=== PATIENT | female | born 1955 | race Caucasian/White ===

== ENCOUNTER 2020-01-24 00:33 | Inpatient (IN) | payer MEDICARE ==
[~2020-01-24] VITALS: Ht 160 cm; Wt 59.0 kg
--- NOTE | 2020-01-24 00:42 | NUR ---
CALLED FOR COVID SWAB
[2020-01-24] MEDS ORDERED: ATOR20TA PO (00:53)
[2020-01-24] MEDS ORDERED: SERT25TA PO (00:53)
[2020-01-24] MEDS ORDERED: METF-442 PO (00:53)
--- NOTE | 2020-01-24 01:27 | NUR ---
REPORT GIVEN TO MARTINEZ ROMERO FOR SCOTTIE
[2020-01-24 02:38] VITALS: BP 122/73
[2020-01-24] MEDS ORDERED: HYDR-500 PO (02:48)
[2020-01-24] MEDS ORDERED: ACETAMINOPHEN 325 MG TABLET PO PRN (03:00)
[2020-01-24] MEDS ORDERED: BLOOD SUGAR DIAGNOSTIC 1 EACH STRIP IN ONE (03:00)
[2020-01-24] MEDS ORDERED: MAG HYDROX/AL HYDROX/SIMETH 30 ML UDC PO PRN (03:00)
[2020-01-24] MEDS ORDERED: LORAZEPAM 0.5 MG TABLET PO PRN (03:00)
--- NOTE | 2020-01-24 03:17 | NUR ---
GPS/SECURITY STRATEGIST ADMISSION NOTES: RECEIVED 64 YR. OLD FEMALE ON A 5150 HOLD FOR DTS. PT. TRIED TO OVERDOSE ON HER MEDICATION METHFORMIN. PT. A/O X3. PT. ORIENTED TO UNIT POLICY, PROTOCOLS, AND PROCEDURES. SAFETY ENVIRONMENT OBSERVED AT ALL TIMES WITH CALL FUENTES WITHIN REACH AND BED ALARM ON. PT. DENIES SI/HI AT THIS TIME. MEDICAL AND PSYCH DRMaurisio MADE AWARE OF PT. ADMISSION. PT. FAMILY ALSO NOTIFIED OF PT. ADMISSION TO UNIT. WILL CONTINUE TO MONITOR Q 15 MIN FOR SAFETY AND BEHAVIOR.
[2020-01-24 08:00] VITALS: BP 124/69
--- NOTE | 2020-01-24 11:55 | NUR ---
Family Contact: SW called the pts daughter, Karol ([phone]), and left a voicemail stating that the SW would like to discuss the treatment planning and initial discharge plan.
[2020-01-24] MEDS: SERTRALINE HCL 50 MG TABLET PO SCH (12:49)
--- NOTE | 2020-01-24 13:02 | NUR ---
Initial Discharge Plan: Pt currently resides at her home located at [address] [place] [address]; ([phone]). Per pt, she would like to return to her home. DARRELL will work with the MD and the pt regarding appropriate discharge planning. SW will form a safe and proper discharge plan.
--- NOTE | 2020-01-24 15:25 | NUR ---
GROUP NOTE: workers compensation attorney invited pt to participate in group. Pt stated that she is feeling dizzy and does not want to join.
[2020-01-24 16:00] VITALS: BP 124/63
--- NOTE | 2020-01-24 18:17 | NUR ---
gps rn note: NEW T.O. ORDER FROM DR DE LA GARZA MILD ACCU CHECK AC/HS ORDER PLACED AND CARED OUT WILL CONTINUE MONITORING
[2020-01-24] MEDS ORDERED: DEXTROSE 50%-WATER 50 ML DISP.SYRIN IV PRN (18:30)
[2020-01-24 19:54] VITALS: BP 132/72
[2020-01-24 20:00] VITALS: BP 132/72
[2020-01-24] MEDS: MIRTAZAPINE 15 MG TABLET PO SCH (21:18)
[2020-01-24] MEDS: TEMAZEPAM 7.5 MG CAPSULE PO PRN (21:18)
[2020-01-24] MEDS: ATORVASTATIN 10 MG TABLET PO SCH (21:18)
[2020-01-24] MEDS: BLOOD SUGAR DIAGNOSTIC 1 EACH STRIP IN SCH (21:19)
[2020-01-24] MEDS: INSULIN REGULAR, HUMAN 100 UNIT/ML 3 ML VIAL SQ PRN (22:40)
--- NOTE | 2020-01-24 22:40 | NUR ---
GPS RN PT REFUSED INSULIN SLIDING SCALE COVERAGE BLOOD SUGAR AT 156 MG/DL DESPITE EXPLAINING RISKS AND BENEFITS PER PT "I DONT WANT INSULIN".OFFERED 3 TIMES PT STILL REFUSE
[2020-01-25 07:13] LABS: BASOPHILS % (AUTO) 0.4 % (0.0-2.0); EOSINOPHILS % (AUTO) 0.8 % (0.0-6.0); HEMATOCRIT 35 % (33-45); HEMOGLOBIN 11.7 g/dL (11.5-14.8); LYMPHOCYTES # (AUTO) 2.3 /CMM (0.8-4.8); MEAN CORPUSCULAR HGB CONC 33 g/dl (31.0-36.0); MEAN CORPUSCULAR VOLUME 92 fL (82-100); MONOCYTES # (AUTO) 0.5 /CMM (0.1-1.30); NEUTROPHILS # (AUTO) 6.3 /CMM (1.8-8.9); NEUTROPHILS % (AUTO) 68.8 % (43.0-81.0); PLATELET COUNT (AUTO) 285 /CMM (150-450); RED BLOOD CELL COUNT(AUTO) 3.85 MIL/uL (4.0-5.2); WHITE BLOOD COUNT (AUTO) 9.2 K/uL (4.3-11.0)
[2020-01-25 07:30] LABS: CALCIUM, SERUM 9.1 mg/dL (8.5-10.1); CREATININE 0.7 mg/dL (0.6-1.3); POTASSIUM 3.8 mmol/L (3.5-5.1)
[2020-01-25] MEDS: BLOOD SUGAR DIAGNOSTIC 1 EACH STRIP IN SCH ×4 (07:30→21:38)
[2020-01-25 08:00] VITALS: BP 120/67
[2020-01-25] MEDS: INSULIN REGULAR, HUMAN 100 UNIT/ML 3 ML VIAL SQ PRN ×4 (11:42→17:16)
[2020-01-25] MEDS: MAGNESIUM HYDROXIDE 30 ML UDC PO PRN (12:22)
[2020-01-25] MEDS: SERTRALINE HCL 50 MG TABLET PO SCH (12:56)
[2020-01-25 16:00] VITALS: BP 110/61
[2020-01-25 20:00] VITALS: BP 125/58
[2020-01-25 20:26] VITALS: BP 125/58
[2020-01-25] MEDS: MIRTAZAPINE 15 MG TABLET PO SCH (21:38)
[2020-01-25] MEDS: ATORVASTATIN 10 MG TABLET PO SCH (21:39)
--- NOTE | 2020-01-25 21:40 | NUR ---
GPS RN NOTE: REFUSED LIPITOR PATIENT REFUSED TO TAKE LIPITOR SCHEDULED, SAID," I DO NOT WANT TO TAKE IT, MY CHOLESTEROL LEVEL IS GOOD." PT. KEPT REFUSING TO TAKE LIPITOR DESPITE OF RISKS & BENEFITS EXPLANATIONS.
--- NOTE | 2020-01-25 22:12 | NUR ---
GPS RN NOTE: REFUSED INSULIN COVERAGE PATIENT'S BLOOD SUGAR IS 131 MG/DL, PATIENT REFUSED 2 UNITS OF SLIDING SCALE INSULIN ORDERED DESPITE OF RISKS & BENEFITS EXPLANATIONS. PATIENT STATED," IT'S NOT TOO HIGH, IT'S NOT TOO LOW, I WILL SEE IN THE MORNING HOW MUCH IS MY FASTING BLOOD SUGAR LEVEL, THEN I WILL DECIDE." WILL CONTINUE TO MONITOR THE PATIENT FOR ANY CHANGES.
[2020-01-25] MEDS: TEMAZEPAM 7.5 MG CAPSULE PO PRN (22:46)
--- NOTE | 2020-01-25 22:46 | NUR ---
GPS RN NOTE: INSOMNIA PATIENT STATED THAT SHE IS UNABLE TO SLEEP & REQUESTED TO GET SLEEPING MEDICINE. PRN RESTORIL 7.5 MG 1 CAP PO GIVEN ORDERED.
[2020-01-26] MEDS: BLOOD SUGAR DIAGNOSTIC 1 EACH STRIP IN SCH ×4 (07:41→22:02)
[2020-01-26] MEDS: INSULIN REGULAR, HUMAN 100 UNIT/ML 3 ML VIAL SQ PRN ×3 (07:42→17:04)
--- NOTE | 2020-01-26 07:42 | NUR ---
RN NOTE: INSULIN REFUSAL AM ACCUCHECK 138. PT REFUSED 2 UNITS SLIDING SCALE COVERAGE. RISKS AND BENEFITS EXPLAINED. PT CONT TO REFUSE X3. WILL MONITOR FOR S/SX OF HYPERGLYCEMIA
[2020-01-26 08:00] VITALS: BP 134/74
[2020-01-26] MEDS: SERTRALINE HCL 50 MG TABLET PO SCH (13:00)
[2020-01-26 16:00] VITALS: BP 106/65
--- NOTE | 2020-01-26 17:04 | NUR ---
RN NOTE: INSULIN REFUSAL ACCUCHECK 138. PT REFUSED 2 UNITS COVERAGE. EDUCATED PT RE IMPORTANCE OF BLOOD SUGAR MANAGEMENT. PT CONT TO REFUSE X 3
[2020-01-26 20:00] VITALS: BP 112/66
[2020-01-26 20:09] VITALS: BP 101/49
[2020-01-26] MEDS: MIRTAZAPINE 15 MG TABLET PO SCH (21:30)
[2020-01-26] MEDS: ATORVASTATIN 10 MG TABLET PO SCH (22:00)
--- NOTE | 2020-01-26 22:02 | NUR ---
GPS RN NOTE: REFUSED LIPITOR PATIENT REFUSED TO TAKE LIPITOR SCHEDULED, SAID. PT. KEPT REFUSING TO TAKE LIPITOR DESPITE OF RISKS & BENEFITS EXPLANATIONS.
--- NOTE | 2020-01-26 22:22 | NUR ---
GPS RN NOTE: REFUSED INSULIN COVERAGE PATIENT'S BLOOD SUGAR IS 134 MG/DL, PATIENT REFUSED 2 UNITS OF SLIDING SCALE INSULIN ORDERED DESPITE OF RISKS & BENEFITS EXPLANATIONS. WILL CONTINUE TO MONITOR THE PATIENT FOR ANY CHANGES.
[2020-01-26] MEDS: TEMAZEPAM 7.5 MG CAPSULE PO PRN (22:38)
--- NOTE | 2020-01-26 22:38 | NUR ---
GPS RN NOTE: INSOMNIA PATIENT VERBALIZED THAT SHE IS UNABLE TO SLEEP & REQUESTED TO GET SLEEPING MEDICINE. PRN RESTORIL 7.5 MG 1 CAP PO GIVEN ORDERED. WILL CONTINUE TO MONITOR.
--- NOTE | 2020-01-27 06:19 | NUR ---
GPS RN NOTE PATIENT REFUSED AM LABS.
[2020-01-27] MEDS: BLOOD SUGAR DIAGNOSTIC 1 EACH STRIP IN SCH ×4 (07:39→21:27)
[2020-01-27] MEDS: INSULIN REGULAR, HUMAN 100 UNIT/ML 3 ML VIAL SQ PRN ×2 (07:41→21:28)
[2020-01-27 08:00] VITALS: BP 111/68
--- NOTE | 2020-01-27 10:15 | NUR ---
Substance Abuse Intervention: SW conducted a substance abuse intervention with the pt due to her overdose attempt.
[2020-01-27] MEDS: SERTRALINE HCL 50 MG TABLET PO SCH (12:46)
[2020-01-27 15:13] LABS: CREATININE 0.9 mg/dL (0.6-1.3); POTASSIUM 3.7 mmol/L (3.5-5.1)
[2020-01-27 16:00] VITALS: BP 132/77
[2020-01-27 20:12] VITALS: BP 116/68
[2020-01-27] MEDS: MIRTAZAPINE 15 MG TABLET PO SCH (21:43)
[2020-01-27] MEDS: ATORVASTATIN 10 MG TABLET PO SCH (21:44)
--- NOTE | 2020-01-27 21:44 | NUR ---
GPS RN NOTES: REFUSED LIPITOR PT REFUSED LIPITOR DUE AT 2200. EXPLAIN RISKS AND BENEFITS. PT STILL REFUSED X3. CONTINUE TO MONITOR.
[2020-01-28] MEDS: BLOOD SUGAR DIAGNOSTIC 1 EACH STRIP IN SCH ×4 (07:31→21:08)
[2020-01-28] MEDS: INSULIN REGULAR, HUMAN 100 UNIT/ML 3 ML VIAL SQ PRN ×3 (07:32→21:09)
[2020-01-28 08:00] VITALS: BP 121/69
--- NOTE | 2020-01-28 09:36 | NUR ---
Family Contact: Pts daughter, Karol ([phone]), called the SW and stated that she wanted to confirm the discharge plan for the pt. She stated that the pt would like to return to her home with her daughter and the daughter expressed that she was nervous because the pt had made this attempt while she left for 30 minutes. Pts daughter admitted that the pt appears to be doing better and SW stated that she will need to keep the pt on the medication regimen to keep her stable. Pts daughter stated that she would now that she understands how important it is. SW stated that she will call her back once she has a discharge date for the pt.
--- NOTE | 2020-01-28 11:08 | NUR ---
Partial Program Referral: SW faxed a referral to [facility] with attn to Iva to the fax number: [phone].
--- NOTE | 2020-01-28 11:09 | NUR ---
Probable Cause (PC) Hearing Notification: DARRELL called the pts daughter, Karol ([phone]), and informed her about the hearing and what it entails. DARRELL stated that she would call her back after it is concluded with the results.
--- NOTE | 2020-01-28 11:12 | NUR ---
Family Contact: SW called the pts daughter, Karol ([phone]), and informed her that the pts hold was upheld and that she will be discharged when the MD thinks it is appropriate.
[2020-01-28] MEDS: SERTRALINE HCL 50 MG TABLET PO SCH (12:13)
--- NOTE | 2020-01-28 15:07 | NUR ---
GROUP NOTE: Group Topic: Depression SW provided active listening, supportive counseling, and explored alternate coping skills. Patient was able to articulate her feelings and shared about her struggles dealing with stress, anxiety, and depression. Patient shared about her experiences of getting help and appropriate resources.
[2020-01-28 15:58] LABS: CALCIUM, SERUM 8.9 mg/dL (8.5-10.1); CREATININE 0.7 mg/dL (0.6-1.3); POTASSIUM 3.6 mmol/L (3.5-5.1)
[2020-01-28 16:00] VITALS: BP 117/69
[2020-01-28 19:56] VITALS: BP 107/61
[2020-01-28 20:23] VITALS: BP 116/62
[2020-01-28] MEDS: MIRTAZAPINE 15 MG TABLET PO SCH (20:39)
[2020-01-28] MEDS: ATORVASTATIN 10 MG TABLET PO SCH (21:14)
--- NOTE | 2020-01-28 21:14 | NUR ---
GPS RN NOTES: REFUSED LIPITOR PT REFUSED LIPITOR DUE AT 2200. EXPLAIN RISKS AND BENEFITS. PT STILL REFUSED X3. CONTINUE TO MONITOR. PT BLOOD SUGAR 142. PT REFUSED INSULIN COVERAGE AND SNACKS AT NIGHT . PT STATED SHE KNOWS SHE WILL NOT EAT SNACKS AT NIGHT AND DOES NOT WANT HER BLOOD SUGAR TO DROP. EXPLAIN RISKS AND BENEFITS. PT STILL REFUSED X3.
[2020-01-29 08:00] VITALS: BP 112/70
[2020-01-29] MEDS: BLOOD SUGAR DIAGNOSTIC 1 EACH STRIP IN SCH ×4 (08:02→21:03)
[2020-01-29] MEDS ORDERED: SITAGLIPTIN PHOSPHATE 50 MG TABLET PO SCH (09:30)
[2020-01-29] MEDS: LINAGLIPTIN 5 MG TABLET PO SCH (10:23)
[2020-01-29] MEDS: INSULIN REGULAR, HUMAN 100 UNIT/ML 3 ML VIAL SQ PRN ×2 (12:10→21:03)
[2020-01-29] MEDS: SERTRALINE HCL 50 MG TABLET PO SCH (13:21)
[2020-01-29] MEDS: MAGNESIUM HYDROXIDE 30 ML UDC PO PRN (15:03)
--- NOTE | 2020-01-29 15:42 | NUR ---
Group Note: SW encouraged the pt to attend group therapy on 01/29/20 on the topic of discharge planning. Pt stated that she was feeling really tired due to the new medications that the MD put her on and she stated that she was seeing visible spots due to the medications. SW informed her that she should continue to rest if that was the case. SW stated that she will speak to her individually regarding her discharge. SW informed her that she will be discharged on Monday due to the new medications and needing to make sure that she is stable. Pt stated that she wants to go back home and that she was really looking forward to it and the SW stated that she needs to remain patient and realize that the MD will discharge her when she is stable.
[2020-01-29 16:00] VITALS: BP 140/79
[2020-01-29] MEDS: SERTRALINE HCL 25 MG TABLET PO SCH (16:56)
[2020-01-29 19:38] VITALS: BP 128/72
[2020-01-29] MEDS: MIRTAZAPINE 15 MG TABLET PO SCH (21:02)
[2020-01-29] MEDS: ATORVASTATIN 10 MG TABLET PO SCH (21:49)
--- NOTE | 2020-01-29 21:50 | NUR ---
GPS RN NOTES: REFUSED LIPITOR PT REFUSED LIPITOR DUE AT 2200. EXPLAIN RISKS AND BENEFITS. PT STILL REFUSED X3. CONTINUE TO MONITOR.
[2020-01-30] MEDS: BLOOD SUGAR DIAGNOSTIC 1 EACH STRIP IN SCH ×4 (07:30→21:23)
[2020-01-30 08:22] VITALS: BP 125/72
[2020-01-30] MEDS: LINAGLIPTIN 5 MG TABLET PO SCH (08:31)
[2020-01-30] MEDS: INSULIN REGULAR, HUMAN 100 UNIT/ML 3 ML VIAL SQ PRN (08:36)
[2020-01-30] MEDS: SERTRALINE HCL 50 MG TABLET PO SCH (12:02)
--- NOTE | 2020-01-30 13:25 | NUR ---
Family Contact: DARRELL called the pts daughter, Karol ([phone]), and informed her that the pt is going to be discharged on Monday. DARRELL stated that she is still working on finding a psychiatrist.
--- NOTE | 2020-01-30 14:15 | NUR ---
GROUP NOTE: Topic: Adapting to our environment. night worker provided active listening, motivational interviewing, and reflected patient's thoughts and feelings. Patient shared about her concerns regarding medications. Patient stated that she is feeling good and does not feel the need to continue taking her medications when she return home from the hospital. Patient stated that her daughter stated "don't take the medications so you don't get addicted". Patient was worried about this statement. night worker helped patient understand "mental health" and the importance of medications. Patient was able to reflect and articulate a better understanding.
[2020-01-30 16:00] VITALS: BP 131/75
[2020-01-30] MEDS: SERTRALINE HCL 25 MG TABLET PO SCH (16:50)
[2020-01-30 20:15] VITALS: BP 124/74
[2020-01-30] MEDS: MIRTAZAPINE 15 MG TABLET PO SCH (21:10)
[2020-01-30] MEDS: ATORVASTATIN 10 MG TABLET PO SCH (21:10)
--- NOTE | 2020-01-31 07:00 | NUR ---
GPS RN OPENING NOTES RECEIVED PATIENT RESTING IN BED AT THIS TIME, AOX4, ANGUILLAN SPEAKING, NO SOB NOTED, NO S/S OF ANY ACUTE DISTRESS NOTED, NO C/O PAIN AT THIS TIME. COOPERATIVE WITH CARE AND EASILY REDIRECTED. PATIENT GETS ANXIOUS AT TIMES. PT DENIES SI/HI/AVH AT THIS TIME. ENVIRONMENTAL SAFETY CHECKS . SAFETY PRECAUTIONS IN PLACE, BED IN LOWEST LOCKED POSITION, SIDE RAILS UP, CALL LIGHT WITHIN REACH. WILL CONTINUE TO MONITOR Q 15 MIN, FOR SAFETY, MOOD, BEHAVIOR AND CONTINUE WITH PLAN OF CARE
[2020-01-31] MEDS: BLOOD SUGAR DIAGNOSTIC 1 EACH STRIP IN SCH ×4 (07:40→21:18)
[2020-01-31 08:00] VITALS: BP 112/65
[2020-01-31] MEDS: INSULIN REGULAR, HUMAN 100 UNIT/ML 3 ML VIAL SQ PRN (08:12)
[2020-01-31] MEDS: LINAGLIPTIN 5 MG TABLET PO SCH (09:40)
--- NOTE | 2020-01-31 11:30 | NUR ---
PER DOCTOR OSCAR, PT'S DAUGHTER LIBIA, REQUESTED TO HAVE DR NUNEZ CALL HER TO PROVIDE UPDATE ON PT'S MEDICATION REGIMEN. DOCTOR NUNEZ MADE AWARE. NO NEW ORDERS, WILL CONTINUE TO MONITOR
[2020-01-31] MEDS: SERTRALINE HCL 50 MG TABLET PO SCH (12:11)
--- NOTE | 2020-01-31 15:07 | NUR ---
GROUP NOTE: Topic: Learning coping skills. load out worker attempted to invite patient to participate in group. Patient was asleep at this time and unable to attend.
[2020-01-31 16:00] VITALS: BP_SYST 112; BP_SYST 129; BP_DIAS 65; BP_DIAS 72
[2020-01-31 17:00] VITALS: BP 129/72
[2020-01-31] MEDS: SERTRALINE HCL 25 MG TABLET PO SCH (17:33)
--- NOTE | 2020-01-31 18:49 | NUR ---
GPS RN CLOSING NOTES PATIENT AWAKE IN BED AT THIS TIME. PT REMAINED STABLE THROUGHOUT SHIFT. PT KEPT CLEAN AND DRY. ALL CARE, NEEDS, MEDICATIONS AND TREATMENT ADMINISTERED ANTICIPATED PER ORDER. SAFETY PRECAUTIONS IN PLACE AND MAINTAINED AT ALL TIMES, BED IN LOWEST LOCKED POSITION, SIDE RAILS UP, CALL LIGHT WITHIN REACH. WILL ENDORSE TO IMPROVEMENT SPEC NURSE FOR SCOTTIE
[2020-01-31] MEDS: MIRTAZAPINE 15 MG TABLET PO SCH (21:02)
[2020-01-31] MEDS: ATORVASTATIN 10 MG TABLET PO SCH (21:02)
[2020-01-31 21:10] VITALS: BP 113/72
--- NOTE | 2020-02-01 07:18 | NUR ---
PS RN NOTE NO BEHAVIOR PROBLEMS NOTED. NO ACUTE DISTRESS NOTED. WILL CONTINUE TO MONITOR FOR SAFETY AND BEHAVIOR .
--- NOTE | 2020-02-01 07:20 | NUR ---
GPS RN NOTE NO BEHAVIOR PROBLEMS NOTED. NO ACUTE DISTRESS NOTED. WILL CONTINUE TO MONITOR FOR SAFETY AND BEHAVIOR .
[2020-02-01] MEDS: BLOOD SUGAR DIAGNOSTIC 1 EACH STRIP IN SCH ×4 (07:57→21:23)
[2020-02-01 08:00] VITALS: BP 116/67
[2020-02-01] MEDS: INSULIN REGULAR, HUMAN 100 UNIT/ML 3 ML VIAL SQ PRN (08:23)
[2020-02-01] MEDS: LINAGLIPTIN 5 MG TABLET PO SCH (09:21)
[2020-02-01] MEDS: SERTRALINE HCL 50 MG TABLET PO SCH (12:35)
[2020-02-01 16:00] VITALS: BP 129/63
[2020-02-01] MEDS: SERTRALINE HCL 25 MG TABLET PO SCH (17:33)
[2020-02-01 20:57] VITALS: BP 124/70
[2020-02-01] MEDS: ATORVASTATIN 10 MG TABLET PO SCH ×2 (21:14→21:29)
[2020-02-01] MEDS: MIRTAZAPINE 15 MG TABLET PO SCH (21:14)
--- NOTE | 2020-02-01 21:29 | NUR ---
GPS-RN NOTE: MEDICATION REFUSAL PATIENT REFUSED SCHEDULED LIPITOR FOR TONIGHT. EDUCATED PT REGARDING IMPORTANCE OF MED COMPLIANCE. PT CONTINUED TO REFUSE X3.
[2020-02-02] MEDS: BLOOD SUGAR DIAGNOSTIC 1 EACH STRIP IN SCH ×4 (07:23→21:26)
[2020-02-02 08:00] VITALS: BP 125/58
[2020-02-02] MEDS: LINAGLIPTIN 5 MG TABLET PO SCH (08:57)
--- NOTE | 2020-02-02 09:00 | NUR ---
RN OPENING NOTES RECEIVED PATIENT IN BED AWAKE, ALERT AND ORIENTED X3. NO ACUTE DISTRESS NOTED.NO SOB NOTED, DENIES PAIN AT THIS TIME, APPEARS CALM, COOPERATIVE TO CARE, MED COMPLIANT, WITH SOCIAL INTERACTIONS WITH PEERS/STAFF. DENIES SI/HI/AVH AT THIS TIME. ALL NEEDS ATTENDED AND ANTICIPATED. SAFETY MEASURES IMPLEMENTED. WILL CONTINUE TO MONITOR Q15MIN ROUNDS FOR SAFETY AND BEHAVIOR.
[2020-02-02] MEDS: INSULIN REGULAR, HUMAN 100 UNIT/ML 3 ML VIAL SQ PRN ×3 (11:54→21:26)
[2020-02-02] MEDS: SERTRALINE HCL 50 MG TABLET PO SCH (13:02)
[2020-02-02 15:51] VITALS: BP 126/74
[2020-02-02] MEDS: SERTRALINE HCL 25 MG TABLET PO SCH (16:50)
[2020-02-02 19:57] VITALS: BP 124/71
[2020-02-02] MEDS: MIRTAZAPINE 15 MG TABLET PO SCH (21:21)
[2020-02-02] MEDS: ATORVASTATIN 10 MG TABLET PO SCH (21:27)
--- NOTE | 2020-02-02 21:28 | NUR ---
GPS RN NOTES: REFUSED LIPITOR PT REFUSED LIPITOR DUE AT 2200. EXPLAIN RISKS AND BENEFITS. PT STILL REFUSED X3. CONTINUE TO MONITOR. PT BLOOD SUGAR 104. PER SLIDING SCALE, NO INSULIN. CONTINUE TO MONITOR
[2020-02-03] MEDS: BLOOD SUGAR DIAGNOSTIC 1 EACH STRIP IN SCH ×2 (07:40→11:56)
[2020-02-03] MEDS: INSULIN REGULAR, HUMAN 100 UNIT/ML 3 ML VIAL SQ PRN (07:45)
[2020-02-03 08:00] VITALS: BP 126/69
[2020-02-03] MEDS: LINAGLIPTIN 5 MG TABLET PO SCH (08:31)
--- NOTE | 2020-02-03 09:07 | NUR ---
Family Contact: SW called the pts daughter, Karol ([phone]), and confirmed with her that she will be picking the pt up around 11am.
--- NOTE | 2020-02-03 12:15 | NUR ---
TAX MAP TECHNICIAN NOTE: 64 YEAR OLD FEMALE DISCHARGED HOME IN STABLE CONDITION. PT COMPLIANT WITH MEDICATION ADMINISTRATION, COOPERATIVE WITH TREATMENT PLAN AND CARE. PATIENT DENIES SI/HI AND DEPRESSION AT TIME OF DISCHARGE. INSTRUCTED TO GO THE CLOSEST ER IF DEVELOPING SI/HI. PT'S BEHAVIOR AND DEPRESSION IMPROVED, PSYCHIATRIC TREAMTNE PLANS MET, MEDICAL TREATMENT PLANS DEFERRED FOR CONTINUAL MONITORING. EDUCATED PT ABOUT AFTER CARE, EXPLAINED FOLLOW UP APPOINTMENTS AND PRESCRIPTIONS. COPY PROVIDED. RETURNED PERSONAL BELONGINGS. PATIENT ID BAND REMOVED. DAUGHTERLIBIA, SIGNED RESPONSIBILITY OF CARE FORM. AFTERCARE AND PRESCRIPTIONS EXPLAINED TO DAUGHTER. MEDICATIONS RECONCILED WITH DR. SOCAR AND DR. NUNEZ. PATIENT SIGNED DISCHARGE PAPERWORK. PATIENT LEFT THE UNIT IN STABLE CONDITION VIA AMBULATION AT 12:15.
--- NOTE | 2020-02-03 12:22 | NUR ---
Discharge Note: Pt was discharged to her home located at [address] [place] [address]; ([phone]). Pts daughter, Karol ([phone]), picked the pt up 11AM. Upon discharge, the pt appeared to be in a euthymic mood and presented with a calm affect. Pt appeared to be alert and oriented x4 (time, place, self and situation). Pt denied both suicidal and homicidal ideation as well as auditory and visual hallucinations. Pt stated that she will never do this again because she has a better understanding of her actions. Pt was provided with substance abuse referrals as well as hotline resources at the time of discharge. Pt will receive psychiatric assistance at [facility] located at [address] [place] [id number]; ; and a fax of records was sent to: . Pt will follow up with her hip hop dancer, Dr. Wright, located at [address] [place], [address]; . Pt has an appointment scheduled for 02/12/20 at 2pm.
== END 2020-02-03 12:15 | disposition home or self-care (01) | DRG 885 ==
LOC: ER 00:33 → GPS 01:33
PROVIDERS: ADMIT Psychiatry & Neurology Psychosomatic Medicine; ATTEND Family Medicine
DX: F32.2 Major depressive disorder, single episode, severe without psychotic features (principal); E11.65 Type 2 diabetes mellitus with hyperglycemia; F23 Brief psychotic disorder; E87.1 Hypo-osmolality and hyponatremia; R45.851 Suicidal ideations; E03.9 Hypothyroidism, unspecified; E78.5 Hyperlipidemia, unspecified; E86.0 Dehydration; Z79.84 Long term (current) use of oral hypoglycemic drugs; F41.0 Panic disorder [episodic paroxysmal anxiety]; T38 Poisoning by, adverse effect of and underdosing of hormones and their synthetic substitutes and antagonists, not elsewhere classified
CPT/HCPCS: 36415; 80048-TC; 80061-TC; 82962-TC; 85025-TC; 87081-TC; 97116-TC; 97530-TC; J1815